=== PATIENT | female | born 1965 | race Caucasian/White ===

== ENCOUNTER 2023-05-05 06:30 | Day surgery (SDC) | payer OTHER ==
[~2023-05-05] VITALS: Ht 165.1 cm; Wt 88.5 kg
[2023-05-05] MEDS ORDERED: diphenhydrAMINE 50 MG/ML VIAL ONE (07:21)
[2023-05-05] MEDS ORDERED: fentaNYL citrate 0.05 MG/ML VIAL ONE (07:22)
[2023-05-05] MEDS ORDERED: MIDAZOLAM 5 MG/5 ML VIAL ONE (07:22)
[2023-05-05] MEDS ORDERED: MIDAZOLAM 5 MG/5 ML VIAL IV ONE (08:05)
[2023-05-05] MEDS ORDERED: fentaNYL citrate 0.05 MG/ML VIAL IVP ONE (08:05)
== END 2023-05-05 08:20 | disposition home or self-care (01) ==
LOC: MDS 06:30 → MMU 06:38 → MDS 08:20
PROVIDERS: ATTEND Internal Medicine Gastroenterology
DX: R13.10 Dysphagia, unspecified (principal); K29.50 Unspecified chronic gastritis without bleeding; K20.90 Esophagitis, unspecified without bleeding; I10 Essential (primary) hypertension; E78.5 Hyperlipidemia, unspecified; Z79.899 Other long term (current) drug therapy
CPT/HCPCS: 43239; J2250; J3010; 88305; 88312; 88313; 88342; J1200

== ENCOUNTER 2023-07-14 07:01 | Day surgery (SDC) | payer OTHER ==
[~2023-07-14] VITALS: Ht 167.6 cm; Wt 89.4 kg
[2023-07-14] MEDS ORDERED: MIDAZOLAM 5 MG/5 ML VIAL ONE (07:54)
[2023-07-14] MEDS ORDERED: diphenhydrAMINE 50 MG/ML VIAL ONE (07:54)
[2023-07-14] MEDS ORDERED: fentaNYL citrate 0.05 MG/ML VIAL ONE (07:54)
[2023-07-14] MEDS ORDERED: fentaNYL citrate 0.05 MG/ML VIAL IVP ONE (10:10)
[2023-07-14] MEDS ORDERED: MIDAZOLAM 2 MG/2 ML VIAL IVP ONE (10:10)
== END 2023-07-14 09:25 | disposition home or self-care (01) ==
LOC: MMU 07:01 → MOR 07:01
PROVIDERS: ATTEND Internal Medicine Gastroenterology
DX: R13.10 Dysphagia, unspecified (principal); K31.89 Other diseases of stomach and duodenum; I10 Essential (primary) hypertension; E78.5 Hyperlipidemia, unspecified; E66.9 Obesity, unspecified; K21.00 Gastro-esophageal reflux disease with esophagitis, without bleeding; Z79.899 Other long term (current) drug therapy
CPT/HCPCS: 43239; 88305; 88312; 88313; 88342; J2250; J3010; J1200